=== PATIENT | female | born 1985 | race Caucasian/White ===

== ENCOUNTER 2017-04-27 12:16 | Emergency (ER) | payer MEDICAID, OTHER ==
[~2017-04-27] VITALS: Ht 152.4 cm; Wt 66.7 kg
[2017-04-27 12:33] VITALS: BP 127/79
== END 2017-04-27 12:54 | disposition home or self-care (01) ==
LOC: ER 12:21
DX: L03.032 Cellulitis of left toe (principal)
CPT/HCPCS: 99283; A4606; Z7610

== ENCOUNTER 2019-08-23 09:25 | Emergency (ER) | payer OTHER ==
[~2019-08-23] VITALS: Ht 157.5 cm; Wt 65.8 kg
[2019-08-23 09:38] VITALS: BP 118/78
[2019-08-23] MEDS ORDERED: AMOX/CLAVULANATE 875 MG TABLET ONE (10:08)
[2019-08-23] MEDS ORDERED: AMOX/CLAVULANATE 875 MG TABLET PO ONE (10:30)
[2019-08-23] MEDS ORDERED: DEXAMETHASONE 1 MG TABLET PO ONE (10:30)
[2019-08-23] MEDS ORDERED: DEXAMETHASONE SOLN 5 MG/5 ML UDC ONE (10:31)
[2019-08-23] MEDS ORDERED: DEXAMETHASONE 4 MG TABLET ONE (10:32)
[2019-08-23] MEDS ORDERED: DEXAMETHASONE 1 MG TABLET ONE (10:32)
== END 2019-08-23 10:37 | disposition home or self-care (01) ==
LOC: ER 09:28
DX: J03.90 Acute tonsillitis, unspecified (principal)
CPT/HCPCS: 87070; 87880; 99283; J8540 ×3; 86403-TC

== ENCOUNTER 2019-09-15 19:05 | Emergency (ER) | payer OTHER ==
[~2019-09-15] VITALS: Ht 157.5 cm; Wt 65.8 kg
[2019-09-15 19:22] VITALS: BP 121/76
--- NOTE | 2019-09-15 19:35 | NUR ---
PT TO ER BED 11. CAME TO ER WITH C/O LEFT AXILLARY LUMP. LUMP NOT VISIBLE, REDNESS NOTED. PATIENT STATES SHE FELT IT THIS MORNING AND HAS BEEN PALPATING IT SINCE THEN. 4-5/10 PAIN UPON PALPATION. AAOX4. NOT IN ANY DISTRESS. BREATHING EVENLY AND UNLABORED. CHANGED INTO GOWN. CONNECTED TO MONITOR.
--- NOTE | 2019-09-15 20:06 | NUR ---
Seen and examined by
--- NOTE | 2019-09-15 20:12 | NUR ---
verbal order for ibuprofen 800mg po now by ALFONZO Prieto. Will carry out orders
[2019-09-15] MEDS ORDERED: IBUPROFEN 400 MG TABLET ONE (20:14)
[2019-09-15] MEDS ORDERED: IBUPROFEN 400 MG TABLET PO ONE (20:30)
== END 2019-09-15 20:56 | disposition home or self-care (01) ==
LOC: ER 19:10
DX: L72.8 Other follicular cysts of the skin and subcutaneous tissue (principal)